=== PATIENT | male | born 1945 | race Caucasian/White ===

== ENCOUNTER 2017-11-07 14:26 | Inpatient (IN) ==
[2017-11-07] MEDS ORDERED: ACETAMINOPHEN 325 MG TABLET PO PRN (16:21)
[2017-11-07] MEDS ORDERED: GLUCAGON 1 MG VIAL IM PRN (16:37)
[2017-11-07] MEDS ORDERED: DEXTROSE 50% 25 GM/50 ML VIAL IV PRN (16:37)
[2017-11-07] MEDS ORDERED: MORPHINE 2 MG/1 ML SYRINGE IV PRN (16:52)
[2017-11-07] MEDS: CLINDAMYCIN INJ 600 MG in PREMIX 1 EACH IV SCH (17:00)
[2017-11-07] MEDS: SODIUM CHLORIDE 0.9% 1,000 ML IV SCH (17:00)
[2017-11-07 17:28] LABS: Basophils # 0.1 10*3/uL (0.0-0.2); Basophils % 0.5 % (0.0-0.8); Eosinophils # 0.2 10*3/uL (0.0-0.87); Eosinophils % 1.7 % (0.00-10.9); Hematocrit 38.8 VOL% (42.0-52.0); Hemoglobin 13.8 GM/DL (14.0-18.0); Immature Granulocytes % 0.4 %; Immature Granulocytes Absolute 0.04 #; Lymphocytes # 1.8 10*3/uL (1.4-4.0); Lymphocytes % 17.5 % (21.2-54.2); Mean Corpuscular HGB Conc 35.6 GM/DL (32-36); Mean Corpuscular Hemoglobin 33 PG (27-34); Mean Corpuscular Volume 91.5 FL (87-102); Mean Platelet Volume 12.2 FL (9.6-12.0); Monocytes # 0.7 10*3/uL (0.11-0.8); Monocytes % 6.6 % (1.7-12.7); Neutrophils # 7.7 10*3/uL (1.4-7.4); Neutrophils % 73.3 % (38.7-73.9); Platelet Count 150 T/CUMM (130-400); Red Blood Count 4.24 MC/CUMM (3.8-5.5); Red Cell Distribution Width 15.3 % (9.3-17.3); White Blood Count 10.5 T/CUMM (4-12)
[2017-11-07] MEDS ORDERED: TAMSULOSIN 0.4 MG CAPSULE PO SCH ×2 (19:00→21:00)
[2017-11-07] MEDS ORDERED: ASPIRIN EC 81 MG TABLET PO SCH (19:00)
[2017-11-07] MEDS ORDERED: MULTIVITAMIN (CENTRUM) TABLET PO SCH (19:00)
[2017-11-07] MEDS ORDERED: SERTRALINE 100 MG TABLET PO SCH (19:00)
[2017-11-07] MEDS: METOPROLOL SUCCINATE XL 100 MG TABLET PO SCH (20:56)
[2017-11-07] MEDS: SERTRALINE 100 MG TABLET PO SCH (20:56)
[2017-11-07] MEDS: MULTIVITAMIN (CENTRUM) TABLET PO SCH (20:56)
[2017-11-07] MEDS: ASPIRIN EC 81 MG TABLET PO SCH (20:57)
[2017-11-07] MEDS: ATORVASTATIN 80 MG TABLET PO SCH (20:57)
[2017-11-07] MEDS: INSULIN LISPRO 100 UNIT/ML SUBCUT SCH (21:00)
[2017-11-08] MEDS: CLINDAMYCIN INJ 600 MG in PREMIX 1 EACH IV SCH ×3 (00:29→17:01)
[2017-11-08 05:44] LABS: Basophils % 0.5 % (0.0-0.8); Eosinophils # 0.3 10*3/uL (0.0-0.87); Eosinophils % 3.8 % (0.00-10.9); Hematocrit 38.5 VOL% (42.0-52.0); Hemoglobin 12.8 GM/DL (14.0-18.0); Immature Granulocytes % 0.3 %; Immature Granulocytes Absolute 0.02 #; Lymphocytes # 2.2 10*3/uL (1.4-4.0); Lymphocytes % 26.9 % (21.2-54.2); Mean Corpuscular HGB Conc 33.2 GM/DL (32-36); Mean Corpuscular Hemoglobin 32 PG (27-34); Mean Corpuscular Volume 95.8 FL (87-102); Mean Platelet Volume 12.1 FL (9.6-12.0); Monocytes # 0.6 10*3/uL (0.11-0.8); Monocytes % 7.9 % (1.7-12.7); Neutrophils # 4.8 10*3/uL (1.4-7.4); Neutrophils % 60.6 % (38.7-73.9); Platelet Count 143 T/CUMM (130-400); Red Blood Count 4.02 MC/CUMM (3.8-5.5); Red Cell Distribution Width 15.4 % (9.3-17.3)
[2017-11-08 06:16] LABS: Calcium 8.8 MG/DL (8.5-10.1); Osmolality,Calculated 278.7 MOS/KG (273-304); Potassium 4.9 MMOL/L (3.5-5.1)
[2017-11-08] MEDS ORDERED: CLINDAMYCIN INJ 50 ML IV ONE (08:55)
[2017-11-08] MEDS ORDERED: SEVOFLURANE 1 UNIT/15 MINUTE INH ONE (10:01)
[2017-11-08] MEDS ORDERED: MIDAZOLAM 2 MG/2 ML VIAL ONE (10:01)
[2017-11-08] MEDS ORDERED: DEXAMETHASONE 10 MG/1 ML VIAL ONE (10:02)
[2017-11-08] MEDS ORDERED: ONDANSETRON 4 MG/2 ML VIAL ONE (10:02)
[2017-11-08] MEDS ORDERED: ETOMIDATE 40 MG/20 ML VIAL IV ONE (10:02)
[2017-11-08] MEDS ORDERED: fentaNYL 100 MCG/2 ML VIAL ONE (10:02)
[2017-11-08] MEDS ORDERED: ROCURONIUM 100 MG/10 ML VIAL IV ONE (10:02)
[2017-11-08] MEDS ORDERED: NEOSTIGMINE 10 MG/10 ML VIAL ONE (10:03)
[2017-11-08] MEDS ORDERED: GLYCOPYRROLATE 0.4 MG/2 ML VIAL ONE (10:05)
[2017-11-08] MEDS: CLOPIDOGREL 75 MG TABLET PO SCH (12:47)
[2017-11-08] MEDS: INSULIN LISPRO 100 UNIT/ML SUBCUT SCH ×4 (12:47→20:49)
[2017-11-08] MEDS: LISINOPRIL 2.5 MG TABLET PO SCH (12:47)
[2017-11-08] MEDS: PANTOPRAZOLE 40 MG TABLET PO SCH (12:48)
[2017-11-08] MEDS: SODIUM CHLORIDE 0.9% 1,000 ML IV SCH (17:01)
[2017-11-08] MEDS ORDERED: TAMSULOSIN 0.4 MG CAPSULE PO SCH (18:00)
[2017-11-08] MEDS: MULTIVITAMIN (CENTRUM) TABLET PO SCH (20:39)
[2017-11-08] MEDS: SERTRALINE 100 MG TABLET PO SCH (20:39)
[2017-11-08] MEDS: ATORVASTATIN 80 MG TABLET PO SCH (20:39)
[2017-11-08] MEDS: METOPROLOL SUCCINATE XL 100 MG TABLET PO SCH (20:39)
[2017-11-08] MEDS: ASPIRIN EC 81 MG TABLET PO SCH (20:39)
[2017-11-09] MEDS: CLINDAMYCIN INJ 600 MG in PREMIX 1 EACH IV SCH ×2 (01:05→09:13)
[2017-11-09 07:34] LABS: Basophils % 0.1 % (0.0-0.8); Hematocrit 34.9 VOL% (42.0-52.0); Immature Granulocytes % 0.5 %; Immature Granulocytes Absolute 0.05 #; Lymphocytes # 1.3 10*3/uL (1.4-4.0); Lymphocytes % 12.3 % (21.2-54.2); Mean Corpuscular HGB Conc 34.4 GM/DL (32-36); Mean Corpuscular Hemoglobin 32 PG (27-34); Mean Corpuscular Volume 94.1 FL (87-102); Mean Platelet Volume 12.1 FL (9.6-12.0); Monocytes # 0.5 10*3/uL (0.11-0.8); Monocytes % 4.2 % (1.7-12.7); Neutrophils # 8.9 10*3/uL (1.4-7.4); Neutrophils % 82.9 % (38.7-73.9); Platelet Count 149 T/CUMM (130-400); Red Blood Count 3.71 MC/CUMM (3.8-5.5); Red Cell Distribution Width 14.7 % (9.3-17.3); White Blood Count 10.7 T/CUMM (4-12)
[2017-11-09 08:03] LABS: Calcium 8.7 MG/DL (8.5-10.1); Osmolality,Calculated 281.7 MOS/KG (273-304); Potassium 4.7 MMOL/L (3.5-5.1)
[2017-11-09 08:16] VITALS: BP 86/47
[2017-11-09] MEDS: CLOPIDOGREL 75 MG TABLET PO SCH (09:13)
[2017-11-09] MEDS: LISINOPRIL 2.5 MG TABLET PO SCH (09:13)
[2017-11-09] MEDS: PANTOPRAZOLE 40 MG TABLET PO SCH (09:13)
[2017-11-09] MEDS: INSULIN LISPRO 100 UNIT/ML SUBCUT SCH ×2 (10:42→12:10)
== END 2017-11-09 12:27 | disposition home or self-care (01) | DRG 580 ==
LOC: N.2E 14:56 → SUATTDRO 14:56
PROVIDERS: ADMIT Internal Medicine; ATTEND Hospitalist

== ENCOUNTER 2018-01-23 16:40 | Inpatient (IN) ==
[2018-01-23] MEDS ORDERED: ONDANSETRON 4 MG/2 ML VIAL IV STA (18:38)
[2018-01-23] MEDS ORDERED: PANTOPRAZOLE 40 MG VIAL IV STA (18:38)
[2018-01-23 19:18] LABS: Basophils % 0.4 % (0.0-0.8); Eosinophils # 0.1 10*3/uL (0.0-0.87); Eosinophils % 1.2 % (0.00-10.9); Hematocrit 25.8 VOL% (42.0-52.0); Hemoglobin 8.1 GM/DL (14.0-18.0); Immature Granulocytes % 0.4 %; Immature Granulocytes Absolute 0.03 #; Lymphocytes # 2.1 10*3/uL (1.4-4.0); Lymphocytes % 24.6 % (21.2-54.2); Mean Corpuscular HGB Conc 31.4 GM/DL (32-36); Mean Corpuscular Hemoglobin 27 PG (27-34); Mean Corpuscular Volume 85.4 FL (87-102); Mean Platelet Volume 12.2 FL (9.6-12.0); Monocytes # 0.9 10*3/uL (0.11-0.8); Monocytes % 10.9 % (1.7-12.7); Neutrophils # 5.3 10*3/uL (1.4-7.4); Neutrophils % 62.5 % (38.7-73.9); Platelet Count 183 T/CUMM (130-400); Red Blood Count 3.02 MC/CUMM (3.8-5.5); White Blood Count 8.5 T/CUMM (4-12)
[2018-01-23 19:39] LABS: Alanine Aminotransferase 19 U/L (16-61); Albumin 3.7 G/DL (3.4-5.0); Alkaline Phosphatase 82 U/L (45-117); Aspartate Amino Transferase 12 U/L (0-37); Blood Urea Nitrogen 22 MG/DL (7-18); Glucose 79 MG/DL (74-106); Osmolality,Calculated 274.8 MOS/KG (273-304); Potassium 3.9 MMOL/L (3.5-5.1); Sodium 137 MMOL/L (136-145); Troponin I Only < 0.015 NG/ML (0.00-0.045)
[2018-01-23 19:41] LABS: PT Patient Result 10.7 SECS
[2018-01-23] MEDS ORDERED: DEXTROSE 50% 25 GM/50 ML VIAL IV PRN (20:12)
[2018-01-23] MEDS ORDERED: GLUCAGON 1 MG VIAL IM PRN (20:12)
[2018-01-23] MEDS ORDERED: SODIUM CHLORIDE 0.9% 1,000 ML IV SCH (20:58)
[2018-01-23] MEDS ORDERED: ONDANSETRON 4 MG/2 ML VIAL IV PRN (20:58)
[2018-01-23] MEDS ORDERED: ACETAMINOPHEN 325 MG TABLET PO PRN (20:58)
[2018-01-23] MEDS ORDERED: CALCIUM GLUCONATE 2,000 MG in SODIUM CHLORIDE 0.9% 100 ML IV ONE (20:58)
[2018-01-23] MEDS ORDERED: NICOTINE 21 MG/24 HR PATCH TRANSDERM PRN (20:58)
[2018-01-23] MEDS: ATORVASTATIN 80 MG TABLET PO SCH (22:02)
[2018-01-23] MEDS: SERTRALINE 50 MG TABLET PO SCH (22:02)
[2018-01-23] MEDS: INSULIN REGULAR 100 UNIT/ML SUBCUT SCH (22:42)
[2018-01-23] MEDS: PANTOPRAZOLE 40 MG VIAL IV SCH (22:43)
[2018-01-23] MEDS ORDERED: FUROSEMIDE 20 MG/2 ML VIAL IV PRN (22:54)
[2018-01-23] MEDS ORDERED: SODIUM CHLORIDE 0.9% 1,000 ML IV PRN (22:54)
[2018-01-24 05:39] LABS: Basophils % 0.6 % (0.0-0.8); Eosinophils # 0.1 10*3/uL (0.0-0.87); Eosinophils % 1.7 % (0.00-10.9); Hematocrit 27.8 VOL% (42.0-52.0); Hemoglobin 9.1 GM/DL (14.0-18.0); Immature Granulocytes % 0.4 %; Immature Granulocytes Absolute 0.03 #; Lymphocytes # 2.1 10*3/uL (1.4-4.0); Lymphocytes % 28.8 % (21.2-54.2); Mean Corpuscular HGB Conc 32.7 GM/DL (32-36); Mean Corpuscular Hemoglobin 27 PG (27-34); Mean Corpuscular Volume 82.5 FL (87-102); Mean Platelet Volume 12.1 FL (9.6-12.0); Monocytes # 0.9 10*3/uL (0.11-0.8); Monocytes % 12.6 % (1.7-12.7); Neutrophils # 4.1 10*3/uL (1.4-7.4); Neutrophils % 55.9 % (38.7-73.9); Platelet Count 170 T/CUMM (130-400); Red Blood Count 3.37 MC/CUMM (3.8-5.5); Red Cell Distribution Width 16.4 % (9.3-17.3); White Blood Count 7.3 T/CUMM (4-12)
[2018-01-24 06:05] LABS: Eosinophils 5 % (0-10); Hypochromasia 1+; Lymphocytes 29 % (20-55); Platelet Estimate Normal; Segmented Neutrophils 56 % (50-85); Total Cells Counted 100
[2018-01-24 06:06] LABS: Giant Platelets Few; Ovalocytes Slight
[2018-01-24 06:10] LABS: Albumin 3.5 G/DL (3.4-5.0); Bilirubin,Total 0.6 MG/DL (0.2-1.0); Calcium 8.9 MG/DL (8.5-10.1); Osmolality,Calculated 275.8 MOS/KG (273-304); Potassium 4.3 MMOL/L (3.5-5.1); Total Protein 6.8 G/DL (6.4-8.3)
[2018-01-24 06:11] LABS: Risk Ratio 2.19; VLDL CHOLESTEROL 16.6 MG/DL
[2018-01-24] MEDS: PANTOPRAZOLE 40 MG VIAL IV SCH ×2 (08:32→21:08)
[2018-01-24] MEDS: DILTIAZEM CD 120 MG CAPSULE PO SCH (08:32)
[2018-01-24] MEDS: INSULIN REGULAR 100 UNIT/ML SUBCUT SCH ×4 (08:33→21:14)
[2018-01-24 10:45] LABS: Hematocrit 29.5 VOL% (42.0-52.0); Hemoglobin 9.8 GM/DL (14.0-18.0)
[2018-01-24 10:50] LABS: Ferritin 16.6 ng/ml (26-388)
[2018-01-24] MEDS: SERTRALINE 50 MG TABLET PO SCH (21:09)
[2018-01-24] MEDS: ATORVASTATIN 80 MG TABLET PO SCH (21:09)
[2018-01-25 04:40] LABS: Basophils % 0.5 % (0.0-0.8); Eosinophils # 0.2 10*3/uL (0.0-0.87); Eosinophils % 3.4 % (0.00-10.9); Hemoglobin 10.6 GM/DL (14.0-18.0); Immature Granulocytes % 0.2 %; Immature Granulocytes Absolute 0.01 #; Lymphocytes % 33.4 % (21.2-54.2); Mean Corpuscular HGB Conc 34.2 GM/DL (32-36); Mean Corpuscular Hemoglobin 28 PG (27-34); Mean Corpuscular Volume 82.2 FL (87-102); Mean Platelet Volume 12.9 FL (9.6-12.0); Monocytes # 0.6 10*3/uL (0.11-0.8); Monocytes % 10.5 % (1.7-12.7); Neutrophils # 3.1 10*3/uL (1.4-7.4); Platelet Count 176 T/CUMM (130-400); Red Blood Count 3.77 MC/CUMM (3.8-5.5); Red Cell Distribution Width 16.3 % (9.3-17.3); White Blood Count 5.9 T/CUMM (4-12)
[2018-01-25 05:03] LABS: Calcium 8.4 MG/DL (8.5-10.1); Osmolality,Calculated 276.7 MOS/KG (273-304); Potassium 4.1 MMOL/L (3.5-5.1)
[2018-01-25] MEDS: INSULIN REGULAR 100 UNIT/ML SUBCUT SCH ×4 (09:53→20:48)
[2018-01-25] MEDS ORDERED: LIDOCAINE 1% 5 ML VIAL ONE (11:20)
[2018-01-25] MEDS ORDERED: ETOMIDATE 20 MG/10 ML VIAL IV ONE (11:20)
[2018-01-25] MEDS ORDERED: PROPOFOL 200 MG/20 ML VIAL IV ONE (11:20)
[2018-01-25] MEDS ORDERED: BISACODYL 5 MG TABLET PO ONE (12:00)
[2018-01-25] MEDS: DILTIAZEM CD 120 MG CAPSULE PO SCH (13:28)
[2018-01-25] MEDS: PANTOPRAZOLE 40 MG VIAL IV SCH ×2 (13:28→20:32)
[2018-01-25] MEDS ORDERED: POLYETHYLENE GLYCOL POWDER 255 GM BOTTLE PO ONE (18:00)
[2018-01-25] MEDS: SERTRALINE 50 MG TABLET PO SCH (20:32)
[2018-01-25] MEDS: ATORVASTATIN 80 MG TABLET PO SCH (20:32)
[2018-01-26 07:45] VITALS: BP 119/59
[2018-01-26] MEDS: INSULIN REGULAR 100 UNIT/ML SUBCUT SCH (08:48)
[2018-01-26] MEDS: PANTOPRAZOLE 40 MG VIAL IV SCH (08:57)
[2018-01-26] MEDS: DILTIAZEM CD 120 MG CAPSULE PO SCH (08:57)
[2018-01-26] MEDS ORDERED: LISINOPRIL 2.5 MG TABLET PO SCH (09:00)
[2018-01-26] MEDS ORDERED: SPIRONOLACTONE 25 MG TABLET PO SCH (09:00)
[2018-01-26] MEDS ORDERED: ISOSORBIDE MONONITRATE 30 MG TABLET PO SCH (09:00)
[2018-01-26 13:40] LABS: PTH-Related Peptide 0.7 pmol/L (<2.0)
[2018-01-26] MEDS ORDERED: METOPROLOL SUCCINATE XL 50 MG TABLET PO SCH (21:00)
[2018-01-27] MEDS ORDERED: GLIMEPIRIDE 2 MG TABLET PO SCH (08:00)
== END 2018-01-26 11:17 | disposition home or self-care (01) | DRG 378 ==
LOC: N.ED 16:40 → SUATTDRO 20:02 → N.EDINP 20:02 → N.TELEN 20:29
PROVIDERS: ADMIT Internal Medicine; ATTEND Internal Medicine Cardiovascular Disease

== ENCOUNTER 2018-12-24 01:33 | Inpatient (IN) ==
[2018-12-24 02:35] LABS: Basophils % 0.4 % (0.0-0.8); Eosinophils # 0.1 10*3/uL (0.0-0.87); Eosinophils % 0.8 % (0.00-10.9); Hematocrit 44.8 VOL% (42.0-52.0); Hemoglobin 14.6 GM/DL (14.0-18.0); Immature Granulocytes % 0.5 %; Immature Granulocytes Absolute 0.05 #; Lymphocytes # 1.9 10*3/uL (1.4-4.0); Lymphocytes % 17.8 % (21.2-54.2); Mean Corpuscular HGB Conc 32.6 GM/DL (32-36); Mean Corpuscular Hemoglobin 34 PG (27-34); Mean Corpuscular Volume 102.8 FL (87-102); Mean Platelet Volume 12.6 FL (9.6-12.0); Monocytes # 0.7 10*3/uL (0.11-0.8); Monocytes % 6.7 % (1.7-12.7); Neutrophils % 73.8 % (38.7-73.9); Platelet Count 135 T/CUMM (130-400); Red Blood Count 4.36 MC/CUMM (3.8-5.5); Red Cell Distribution Width 14.2 % (9.3-17.3); White Blood Count 10.9 T/CUMM (4-12)
[2018-12-24 02:50] LABS: Albumin 3.7 G/DL (3.4-5.0); Bilirubin,Total 1.1 MG/DL (0.2-1.0); Calcium 8.3 MG/DL (8.5-10.1); Osmolality,Calculated 284.4 MOS/KG (273-304); Potassium 4.7 MMOL/L (3.5-5.1); Total Protein 6.7 G/DL (6.4-8.3)
[2018-12-24] MEDS ORDERED: ONDANSETRON 4 MG/2 ML VIAL IV STA (02:58)
[2018-12-24] MEDS ORDERED: PANTOPRAZOLE 40 MG VIAL IV STA (02:59)
[2018-12-24] MEDS ORDERED: ONDANSETRON 4 MG/2 ML VIAL IV PRN (04:24)
[2018-12-24] MEDS ORDERED: FUROSEMIDE 40 MG/4 ML VIAL IV ONE (04:31)
[2018-12-24] MEDS ORDERED: DEXTROSE 50% 25 GM/50 ML SYRINGE IV PRN (04:41)
[2018-12-24] MEDS ORDERED: GLUCAGON 1 MG VIAL IM PRN (04:41)
[2018-12-24] MEDS ORDERED: ALBUTEROL/IPRATROPIUM 3 ML NEB RESP TX PRN (04:44)
[2018-12-24] MEDS: INSULIN REGULAR 100 UNIT/ML SUBCUT SCH ×4 (08:12→21:23)
[2018-12-24] MEDS: PANTOPRAZOLE 40 MG TABLET PO SCH (08:48)
[2018-12-24] MEDS: ENOXAPARIN 40 MG/0.4 ML SYRINGE SUBCUT SCH (08:48)
[2018-12-24] MEDS: FERROUS SULFATE 325 MG TABLET PO SCH (08:48)
[2018-12-24] MEDS: MULTIVITAMIN (CENTRUM) TABLET PO SCH (08:48)
[2018-12-24] MEDS: NICOTINE 21 MG/24 HR PATCH TRANSDERM SCH (08:48)
[2018-12-24] MEDS: CLOPIDOGREL 75 MG TABLET PO SCH (08:48)
[2018-12-24] MEDS: SERTRALINE 50 MG TABLET PO SCH ×2 (08:48→21:22)
[2018-12-24] MEDS ORDERED: METOPROLOL TARTRATE 5 MG/5 ML VIAL IV ONE (09:57)
[2018-12-24] MEDS: GLIMEPIRIDE 4 MG TABLET PO SCH (16:40)
[2018-12-24] MEDS: FUROSEMIDE 40 MG/4 ML VIAL IV SCH (16:40)
[2018-12-24] MEDS: CARVEDILOL 3.125 MG TABLET PO SCH (16:40)
[2018-12-24] MEDS ORDERED: DILTIAZEM CD 120 MG CAPSULE PO SCH (18:52)
[2018-12-24] MEDS ORDERED: METOPROLOL SUCCINATE XL 100 MG TABLET PO SCH (18:53)
[2018-12-24] MEDS ORDERED: CHOLECALCIFEROL 1,000 UNIT TABLET PO SCH (21:00)
[2018-12-24] MEDS ORDERED: ASPIRIN EC 81 MG TABLET PO SCH (21:00)
[2018-12-24] MEDS ORDERED: ATORVASTATIN 80 MG TABLET PO SCH (21:00)
[2018-12-24] MEDS ORDERED: ACETAMINOPHEN 500 MG TABLET PO ONE (23:18)
[2018-12-24] MEDS ORDERED: diphenhydrAMINE CAP 25 MG CAPSULE PO ONE (23:18)
[2018-12-25 05:03] LABS: Basophils # 0.1 10*3/uL (0.0-0.2); Basophils % 0.9 % (0.0-0.8); Eosinophils # 0.2 10*3/uL (0.0-0.87); Hematocrit 42.4 VOL% (42.0-52.0); Hemoglobin 14.1 GM/DL (14.0-18.0); Immature Granulocytes % 0.3 %; Immature Granulocytes Absolute 0.02 #; Lymphocytes # 2.3 10*3/uL (1.4-4.0); Lymphocytes % 32.9 % (21.2-54.2); Mean Corpuscular HGB Conc 33.3 GM/DL (32-36); Mean Corpuscular Hemoglobin 33 PG (27-34); Mean Corpuscular Volume 99.8 FL (87-102); Mean Platelet Volume 12.2 FL (9.6-12.0); Monocytes # 0.5 10*3/uL (0.11-0.8); Monocytes % 6.7 % (1.7-12.7); Neutrophils # 3.9 10*3/uL (1.4-7.4); Neutrophils % 56.2 % (38.7-73.9); Platelet Count 133 T/CUMM (130-400); Red Blood Count 4.25 MC/CUMM (3.8-5.5); White Blood Count 6.9 T/CUMM (4-12)
[2018-12-25 05:32] LABS: Calcium 8.2 MG/DL (8.5-10.1); Osmolality,Calculated 281.4 MOS/KG (273-304); Potassium 3.5 MMOL/L (3.5-5.1); Risk Ratio 3.43; VLDL CHOLESTEROL 20.2 MG/DL
[2018-12-25] MEDS: GLIMEPIRIDE 4 MG TABLET PO SCH (09:17)
[2018-12-25] MEDS: CARVEDILOL 3.125 MG TABLET PO SCH (09:17)
[2018-12-25] MEDS: INSULIN REGULAR 100 UNIT/ML SUBCUT SCH ×2 (09:17→13:37)
[2018-12-25] MEDS: MULTIVITAMIN (CENTRUM) TABLET PO SCH (09:18)
[2018-12-25] MEDS: ENOXAPARIN 40 MG/0.4 ML SYRINGE SUBCUT SCH (09:18)
[2018-12-25] MEDS: NICOTINE 21 MG/24 HR PATCH TRANSDERM SCH (09:18)
[2018-12-25] MEDS: FERROUS SULFATE 325 MG TABLET PO SCH (09:18)
[2018-12-25] MEDS: PANTOPRAZOLE 40 MG TABLET PO SCH (09:19)
[2018-12-25] MEDS: SERTRALINE 50 MG TABLET PO SCH (09:19)
[2018-12-25] MEDS: CLOPIDOGREL 75 MG TABLET PO SCH (09:19)
[2018-12-25] MEDS: FUROSEMIDE 40 MG/4 ML VIAL IV SCH (09:24)
[2018-12-25] MEDS ORDERED: APIXABAN 5 MG TABLET PO SCH (11:00)
[2018-12-25] MEDS ORDERED: AMIODARONE 200 MG TABLET PO SCH (11:30)
[2018-12-25 12:19] VITALS: BP 109/65
[2018-12-25] MEDS ORDERED: METOPROLOL SUCCINATE XL 100 MG TABLET PO SCH (18:41)
[2018-12-25] MEDS ORDERED: DILTIAZEM CD 120 MG CAPSULE PO SCH (18:41)
[2018-12-26] MEDS ORDERED: ENOXAPARIN 40 MG/0.4 ML SYRINGE SUBCUT SCH (09:00)
== END 2018-12-25 13:55 | disposition home or self-care (01) | DRG 308 ==
LOC: N.ED 01:33 → N.EDINP 04:24 → N.TELEN 05:27
PROVIDERS: ADMIT Internal Medicine; ATTEND Internal Medicine

== ENCOUNTER 2019-01-08 21:35 | Inpatient (IN) ==
[2019-01-08] MEDS ORDERED: methylPREDNISolone SOD SUC 125 MG/2 ML VIAL IV STA (22:51)
[2019-01-08] MEDS ORDERED: FUROSEMIDE 100 MG/10 ML VIAL IV STA (22:51)
[2019-01-08] MEDS ORDERED: ALBUTEROL/IPRATROPIUM 3 ML NEB RESP TX STA (22:51)
[2019-01-08 22:59] LABS: Basophils % 0.4 % (0.0-0.8); Eosinophils # 0.1 10*3/uL (0.0-0.87); Eosinophils % 0.9 % (0.00-10.9); Hematocrit 43.3 VOL% (42.0-52.0); Hemoglobin 13.9 GM/DL (14.0-18.0); Immature Granulocytes % 0.4 %; Immature Granulocytes Absolute 0.04 #; Lymphocytes # 1.6 10*3/uL (1.4-4.0); Mean Corpuscular HGB Conc 32.1 GM/DL (32-36); Mean Corpuscular Volume 102.4 FL (87-102); Mean Platelet Volume 12.5 FL (9.6-12.0); Monocytes % 5.9 % (1.7-12.7); Neutrophils % 75.4 % (38.7-73.9); Platelet Count 155 T/CUMM (130-400); Red Blood Count 4.23 MC/CUMM (3.8-5.5); Red Cell Distribution Width 14.9 % (9.3-17.3); White Blood Count 9.6 T/CUMM (4-12)
[2019-01-08 23:02] LABS: INR 1.1; PT Patient Result 11.5 SECS
[2019-01-08 23:11] LABS: Albumin 3.6 G/DL (3.4-5.0); Bilirubin,Total 0.9 MG/DL (0.2-1.0); Calcium 8.7 MG/DL (8.5-10.1); Osmolality,Calculated 281.5 MOS/KG (273-304); Total Protein 6.5 G/DL (6.4-8.3)
[2019-01-08 23:38] LABS: Apearance,Urine CLEAR (Clear); Bacteria,Urine Occasional /HPF (Few); Bilirubin,Urine Negative (Negative); Blood, Urine Negative (Negative); Glucose,Urine (UA) Negative (Negative); Ketones,Urine 20 mg/dL (Negative); Mucus,Urine Occasional /LPF (Occasional); Nitrite,Urine Negative (Negative); Protein,Urine Negative; RBC,Urine 1 /HPF (0-4); Squamous Epithelial Cell,Urine Occasional /HPF (0-10); Urine Color Amber (Yellow); Urine Specific Gravity 1.026 (1.001-1.035); WBC,Urine 8 /HPF (0-6)
[2019-01-09] MEDS ORDERED: ONDANSETRON 4 MG/2 ML VIAL IV PRN (01:30)
[2019-01-09] MEDS ORDERED: DEXTROSE 50% 25 GM/50 ML SYRINGE IV PRN (01:30)
[2019-01-09] MEDS ORDERED: GLUCAGON 1 MG VIAL IM PRN ×2 (01:30→11:00)
[2019-01-09 02:06] LABS: Risk Ratio 2.86; Thyroid Stimulating Hormone 4.94 uIU/ml (0.358-3.74); VLDL CHOLESTEROL 20.2 MG/DL
[2019-01-09] MEDS: DILTIAZEM CD 120 MG CAPSULE PO SCH ×2 (04:00→09:08)
[2019-01-09 04:28] LABS: Troponin I 0.027 NG/ML (0.00-0.045)
[2019-01-09] MEDS: METOPROLOL SUCCINATE XL 100 MG TABLET PO SCH ×2 (05:15→09:09)
[2019-01-09 05:22] LABS: Basophils % 0.3 % (0.0-0.8); Hematocrit 39.2 VOL% (42.0-52.0); Immature Granulocytes % 0.4 %; Immature Granulocytes Absolute 0.03 #; Lymphocytes # 0.4 10*3/uL (1.4-4.0); Lymphocytes % 5.5 % (21.2-54.2); Mean Corpuscular HGB Conc 33.2 GM/DL (32-36); Mean Platelet Volume 12.7 FL (9.6-12.0); Neutrophils % 92.8 % (38.7-73.9); Platelet Count 138 T/CUMM (130-400); Red Blood Count 3.88 MC/CUMM (3.8-5.5); Red Cell Distribution Width 14.8 % (9.3-17.3)
[2019-01-09 05:44] LABS: Calcium 8.4 MG/DL (8.5-10.1); Osmolality,Calculated 284.5 MOS/KG (273-304)
[2019-01-09 06:33] LABS: Anisocytosis Slight; Lymphocytes 5 % (20-55); Segmented Neutrophils 95 % (50-85); Total Cells Counted 100
[2019-01-09 06:34] LABS: Microcytosis Slight
[2019-01-09 06:35] LABS: Platelet Estimate Normal; Spherocytes Few
[2019-01-09] MEDS: INSULIN LISPRO 100 UNIT/ML SUBCUT SCH ×3 (07:07→17:33)
[2019-01-09 07:09] LABS: Troponin I 0.025 NG/ML (0.00-0.045)
[2019-01-09] MEDS: ALBUTEROL/IPRATROPIUM 3 ML NEB RESP TX SCH ×5 (07:20→23:42)
[2019-01-09] MEDS: CLOPIDOGREL 75 MG TABLET PO SCH (09:08)
[2019-01-09] MEDS: ISOSORBIDE MONONITRATE 30 MG TABLET PO SCH ×2 (09:08→09:11)
[2019-01-09] MEDS: AMIODARONE 200 MG TABLET PO SCH (09:08)
[2019-01-09] MEDS: PANTOPRAZOLE 40 MG TABLET PO SCH (09:09)
[2019-01-09] MEDS: ENOXAPARIN 40 MG/0.4 ML SYRINGE SUBCUT SCH (09:09)
[2019-01-09 09:50] LABS: Troponin I 0.026 NG/ML (0.00-0.045)
[2019-01-09] MEDS ORDERED: DEXTROSE 50% 25 GM/50 ML VIAL IV PRN (11:00)
[2019-01-09] MEDS ORDERED: metOLazone 5 MG TABLET PO SCH (15:00)
[2019-01-09] MEDS: FUROSEMIDE 40 MG/4 ML VIAL IV SCH (15:57)
[2019-01-09 16:19] LABS: Troponin I 0.017 NG/ML (0.00-0.045)
[2019-01-09] MEDS: GLIMEPIRIDE 4 MG TABLET PO SCH (17:32)
[2019-01-09] MEDS: DULoxetine 30 MG CAPSULE PO SCH (21:16)
[2019-01-09] MEDS: ATORVASTATIN 80 MG TABLET PO SCH (21:16)
[2019-01-09] MEDS: ASPIRIN EC 81 MG TABLET PO SCH (21:16)
[2019-01-10] MEDS: ALBUTEROL/IPRATROPIUM 3 ML NEB RESP TX SCH ×7 (02:37→23:39)
[2019-01-10 05:35] LABS: Basophils % 0.1 % (0.0-0.8); Hematocrit 37.8 VOL% (42.0-52.0); Hemoglobin 12.2 GM/DL (14.0-18.0); Immature Granulocytes % 0.4 %; Immature Granulocytes Absolute 0.04 #; Lymphocytes # 0.8 10*3/uL (1.4-4.0); Lymphocytes % 8.5 % (21.2-54.2); Mean Corpuscular HGB Conc 32.3 GM/DL (32-36); Mean Corpuscular Volume 101.9 FL (87-102); Monocytes % 6.2 % (1.7-12.7); Neutrophils % 84.8 % (38.7-73.9); Platelet Count 134 T/CUMM (130-400); Red Blood Count 3.71 MC/CUMM (3.8-5.5); Red Cell Distribution Width 14.8 % (9.3-17.3); White Blood Count 9.2 T/CUMM (4-12)
[2019-01-10] MEDS: INSULIN LISPRO 100 UNIT/ML SUBCUT SCH ×4 (06:01→18:26)
[2019-01-10 06:32] LABS: Calcium 8.3 MG/DL (8.5-10.1); Osmolality,Calculated 289.5 MOS/KG (273-304)
[2019-01-10] MEDS: GLIMEPIRIDE 4 MG TABLET PO SCH ×2 (09:02→16:20)
[2019-01-10] MEDS: METOPROLOL SUCCINATE XL 100 MG TABLET PO SCH (09:02)
[2019-01-10] MEDS: DILTIAZEM CD 120 MG CAPSULE PO SCH (09:03)
[2019-01-10] MEDS: PANTOPRAZOLE 40 MG TABLET PO SCH (09:03)
[2019-01-10] MEDS: ENOXAPARIN 40 MG/0.4 ML SYRINGE SUBCUT SCH (09:04)
[2019-01-10] MEDS: ISOSORBIDE MONONITRATE 30 MG TABLET PO SCH (09:04)
[2019-01-10] MEDS: CLOPIDOGREL 75 MG TABLET PO SCH (09:04)
[2019-01-10] MEDS: AMIODARONE 200 MG TABLET PO SCH (09:05)
[2019-01-10] MEDS: FUROSEMIDE 40 MG/4 ML VIAL IV SCH (10:18)
[2019-01-10] MEDS: SODIUM CHLORIDE 0.9% 1,000 ML IV SCH (12:23)
[2019-01-10] MEDS: ATORVASTATIN 80 MG TABLET PO SCH ×2 (19:38→20:01)
[2019-01-10] MEDS: DULoxetine 30 MG CAPSULE PO SCH ×2 (19:38→20:00)
[2019-01-10] MEDS: ASPIRIN EC 81 MG TABLET PO SCH ×2 (19:38→20:00)
[2019-01-11] MEDS: INSULIN LISPRO 100 UNIT/ML SUBCUT SCH ×4 (03:45→18:37)
[2019-01-11] MEDS: SODIUM CHLORIDE 0.9% 1,000 ML IV SCH (03:45)
[2019-01-11] MEDS: ALBUTEROL/IPRATROPIUM 3 ML NEB RESP TX SCH ×6 (04:00→23:25)
[2019-01-11 06:15] LABS: Calcium 8.4 MG/DL (8.5-10.1); Osmolality,Calculated 287.4 MOS/KG (273-304)
[2019-01-11] MEDS ORDERED: DILTIAZEM CD 240 MG CAPSULE PO SCH (06:23)
[2019-01-11] MEDS: PANTOPRAZOLE 40 MG TABLET PO SCH (08:00)
[2019-01-11] MEDS: GLIMEPIRIDE 4 MG TABLET PO SCH (08:00)
[2019-01-11] MEDS: METOPROLOL SUCCINATE XL 100 MG TABLET PO SCH (08:00)
[2019-01-11] MEDS: ISOSORBIDE MONONITRATE 30 MG TABLET PO SCH (08:00)
[2019-01-11] MEDS: AMIODARONE 200 MG TABLET PO SCH (08:00)
[2019-01-11] MEDS: CLOPIDOGREL 75 MG TABLET PO SCH (08:00)
[2019-01-11] MEDS: ENOXAPARIN 40 MG/0.4 ML SYRINGE SUBCUT SCH (08:00)
[2019-01-11 08:09] VITALS: BP 156/93
[2019-01-11] MEDS ORDERED: FUROSEMIDE 40 MG/4 ML VIAL IV ONE (08:12)
[2019-01-11] MEDS ORDERED: LORazepam 2 MG/1 ML VIAL ONE (09:00)
[2019-01-11] MEDS ORDERED: LORazepam 2 MG/1 ML VIAL IV ONE (09:04)
[2019-01-11] MEDS ORDERED: PROPOFOL 1,000 MG/100 ML BOTTLE IV ONE (09:25)
[2019-01-11] MEDS ORDERED: PHENYLEPHRINE DRIP 40 MG/250 ML PREMIX IV ONE (09:39)
[2019-01-11 09:44] LABS: Troponin I 0.078 NG/ML (0.00-0.045)
[2019-01-11 09:57] LABS: Apearance,Urine CLEAR (Clear); Bilirubin,Urine Negative (Negative); Blood, Urine Negative (Negative); Glucose,Urine (UA) Negative (Negative); Ketones,Urine Negative (Negative); Mucus,Urine Occasional /LPF (Occasional); Nitrite,Urine Negative (Negative); Protein,Urine Negative; RBC,Urine <1 /HPF (0-4); Squamous Epithelial Cell,Urine Occasional /HPF (0-10); Urine Color Yellow (Yellow); Urine Specific Gravity 1.016 (1.001-1.035); Urine Urobilinogen < 2.0 EU/DL (0.2-1.0); WBC,Urine 4 /HPF (0-6)
[2019-01-11 10:01] LABS: ABG Base Excess -10.6 MMOL/L (-2.5-2.5); ABG Oxygen Saturation 88.5 % (95-100); ABG PCO2 37.8 MM HG (35-48); ABG PH 7.243 (7.35-7.45); ABG PO2 68.5 MM HG (80-95); ABG TCO2 14.6 MMOL/L (23-27)
[2019-01-11] MEDS ORDERED: HEPARIN/NACL 0.9% 2 UNITS/ML 500 ML IV ONE ×2 (10:02→10:15)
[2019-01-11] MEDS ORDERED: PROPOFOL 200 MG/20 ML VIAL IV ONE (10:07)
[2019-01-11] MEDS ORDERED: PHENYLEPHRINE 1 MG/10 ML SYRINGE IV ONE (10:08)
[2019-01-11] MEDS ORDERED: SUCCINYLCHOLINE 200 MG/10 ML VIAL ONE (10:08)
[2019-01-11] MEDS: PROPOFOL 1,000 MG/100 ML BOTTLE IV SCH ×2 (10:10→18:36)
[2019-01-11] MEDS ORDERED: LIDOCAINE 1% 20 ML VIAL ONE (10:15)
[2019-01-11] MEDS: HEPARIN/NACL 0.9% 2 UNITS/ML 500 ML IV SCH (10:18)
[2019-01-11 13:12] LABS: ABG Base Excess -5.5 MMOL/L (-2.5-2.5); ABG HCO3 19.9 MMOL/L (20-26); ABG Oxygen Saturation 98.9 % (95-100); ABG PCO2 33.5 MM HG (35-48); ABG PH 7.363 (7.35-7.45); ABG TCO2 16.8 MMOL/L (23-27)
[2019-01-11] MEDS: POTASSIUM CHLORIDE RIDER 20 MEQ in PREMIX 1 EACH IV PRN ×2 (13:32→15:45)
[2019-01-11] MEDS: methylPREDNISolone SOD SUC 40 MG/1 ML VIAL IV SCH ×2 (15:08→21:49)
[2019-01-11] MEDS ORDERED: FUROSEMIDE 40 MG/4 ML VIAL IV SCH (16:00)
[2019-01-11] MEDS: DOBUTamine 500 MG/250 ML PREMIX IV PRN ×2 (16:40→16:52)
[2019-01-11] MEDS: POTASSIUM CHLORIDE RIDER 10 MEQ in PREMIX 1 EACH IV PRN (18:30)
[2019-01-11 21:42] LABS: Troponin I 0.129 NG/ML (0.00-0.045)
[2019-01-11] MEDS: ATORVASTATIN 80 MG TABLET PO SCH (21:49)
[2019-01-11] MEDS: DULoxetine 30 MG CAPSULE PO SCH (21:49)
[2019-01-11] MEDS: ASPIRIN EC 81 MG TABLET PO SCH (21:49)
[2019-01-12] MEDS: INSULIN LISPRO 100 UNIT/ML SUBCUT SCH ×5 (01:03→23:36)
[2019-01-12] MEDS: DOBUTamine 500 MG/250 ML PREMIX IV PRN ×6 (01:45→21:44)
[2019-01-12] MEDS: ALBUTEROL/IPRATROPIUM 3 ML NEB RESP TX SCH ×6 (03:13→22:34)
[2019-01-12] MEDS: PROPOFOL 1,000 MG/100 ML BOTTLE IV SCH ×2 (03:38→15:05)
[2019-01-12 04:13] LABS: ABG Base Excess -2.4 MMOL/L (-2.5-2.5); ABG HCO3 22.4 MMOL/L (20-26); ABG Oxygen Saturation 99.6 % (95-100); ABG PCO2 32.8 MM HG (35-48); ABG PH 7.421 (7.35-7.45); ABG TCO2 19.2 MMOL/L (23-27)
[2019-01-12 04:30] LABS: Hematocrit 31.3 VOL% (42.0-52.0); Hemoglobin 10.5 GM/DL (14.0-18.0); Immature Granulocytes % 0.3 %; Immature Granulocytes Absolute 0.03 #; Lymphocytes # 0.5 10*3/uL (1.4-4.0); Lymphocytes % 5.3 % (21.2-54.2); Mean Corpuscular HGB Conc 33.5 GM/DL (32-36); Mean Corpuscular Volume 99.7 FL (87-102); Mean Platelet Volume 13.3 FL (9.6-12.0); Monocytes % 2.7 % (1.7-12.7); Neutrophils % 91.7 % (38.7-73.9); Platelet Count 103 T/CUMM (130-400); Red Blood Count 3.14 MC/CUMM (3.8-5.5); Red Cell Distribution Width 14.8 % (9.3-17.3); White Blood Count 9.3 T/CUMM (4-12)
[2019-01-12 04:54] LABS: Calcium 7.9 MG/DL (8.5-10.1); Osmolality,Calculated 292.8 MOS/KG (273-304)
[2019-01-12 05:23] LABS: Lymphocytes 1 % (20-55); Platelet Estimate Decreased; Polychromasia Slight; Segmented Neutrophils 99 % (50-85); Total Cells Counted 100
[2019-01-12] MEDS: methylPREDNISolone SOD SUC 40 MG/1 ML VIAL IV SCH ×3 (06:40→21:21)
[2019-01-12] MEDS: CLOPIDOGREL 75 MG TABLET PO SCH (09:21)
[2019-01-12] MEDS: AMIODARONE 200 MG TABLET PO SCH (09:21)
[2019-01-12] MEDS: ENOXAPARIN 40 MG/0.4 ML SYRINGE SUBCUT SCH (09:21)
[2019-01-12] MEDS: PANTOPRAZOLE 40 MG TABLET PO SCH (09:30)
[2019-01-12] MEDS: LANSOPRAZOLE ODT 30 MG TABLET PER TUBE SCH (09:47)
[2019-01-12] MEDS: POTASSIUM CHLORIDE RIDER 20 MEQ in PREMIX 1 EACH IV PRN (11:15)
[2019-01-12] MEDS: POTASSIUM CHLORIDE RIDER 10 MEQ in PREMIX 1 EACH IV PRN (14:00)
[2019-01-12 14:12] LABS: INR 1.1; PT Patient Result 12.4 SECS; Partial Thromboplastin Time 29.7 SECS (0-40)
[2019-01-12] MEDS: HEPARIN/NACL 0.9% 2 UNITS/ML 500 ML IV SCH (14:32)
[2019-01-12] MEDS ORDERED: AMIODARONE INJ 150 MG in DEXTROSE 5% 100 ML IV ONE (17:50)
[2019-01-12] MEDS ORDERED: MIDAZOLAM 2 MG/2 ML VIAL IV ONE (18:07)
[2019-01-12] MEDS: PHENYLEPHRINE DRIP 40 MG/250 ML PREMIX IV PRN (18:10)
[2019-01-12] MEDS: fentaNYL INJ 1,250 MCG in SODIUM CHLORIDE 0.9% 225 ML IV PRN (18:17)
[2019-01-12] MEDS: DULoxetine 30 MG CAPSULE PO SCH (20:52)
[2019-01-12] MEDS: ASPIRIN EC 81 MG TABLET PO SCH (20:52)
[2019-01-12] MEDS: ATORVASTATIN 80 MG TABLET PO SCH (20:52)
[2019-01-13] MEDS: DOBUTamine 500 MG/250 ML PREMIX IV PRN ×3 (01:39→09:56)
[2019-01-13] MEDS: PHENYLEPHRINE DRIP 40 MG/250 ML PREMIX IV PRN ×3 (01:40→11:35)
[2019-01-13] MEDS: ALBUTEROL/IPRATROPIUM 3 ML NEB RESP TX SCH ×2 (02:30→07:53)
[2019-01-13 05:40] LABS: ABG Base Excess -3.9 MMOL/L (-2.5-2.5); ABG HCO3 21.2 MMOL/L (20-26); ABG Oxygen Saturation 96.2 % (95-100); ABG PCO2 36.2 MM HG (35-48); ABG PH 7.369 (7.35-7.45); ABG TCO2 19.1 MMOL/L (23-27)
[2019-01-13 05:42] LABS: Basophils % 0.1 % (0.0-0.8); Hematocrit 27.9 VOL% (42.0-52.0); Hemoglobin 9.4 GM/DL (14.0-18.0); Immature Granulocytes % 0.3 %; Immature Granulocytes Absolute 0.03 #; Lymphocytes # 0.3 10*3/uL (1.4-4.0); Lymphocytes % 3.3 % (21.2-54.2); Mean Corpuscular HGB Conc 33.7 GM/DL (32-36); Mean Corpuscular Volume 99.6 FL (87-102); Monocytes % 4.8 % (1.7-12.7); Neutrophils % 91.5 % (38.7-73.9); Platelet Count 105 T/CUMM (130-400); Red Cell Distribution Width 14.6 % (9.3-17.3); White Blood Count 10.2 T/CUMM (4-12)
[2019-01-13 05:58] LABS: Prealbumin 14.4 MG/DL (20-40)
[2019-01-13 06:01] LABS: Calcium 8.1 MG/DL (8.5-10.1); Osmolality,Calculated 288.1 MOS/KG (273-304)
[2019-01-13 06:15] LABS: Band Neutrophils 2 % (0-10); Hypochromasia Slight; Lymphocytes 5 % (20-55); Ovalocytes Slight; Platelet Estimate Decreased; Segmented Neutrophils 86 % (50-85); Total Cells Counted 100
[2019-01-13] MEDS: INSULIN LISPRO 100 UNIT/ML SUBCUT SCH ×2 (06:30→13:15)
[2019-01-13] MEDS ORDERED: FUROSEMIDE 40 MG/4 ML VIAL IV ONE (06:54)
[2019-01-13] MEDS ORDERED: DIGOXIN 0.5 MG/2 ML AMP IV ONE (07:09)
[2019-01-13] MEDS: methylPREDNISolone SOD SUC 40 MG/1 ML VIAL IV SCH (07:25)
[2019-01-13] MEDS: fentaNYL INJ 1,250 MCG in SODIUM CHLORIDE 0.9% 225 ML IV PRN (09:16)
[2019-01-13] MEDS: ENOXAPARIN 40 MG/0.4 ML SYRINGE SUBCUT SCH (09:56)
[2019-01-13] MEDS: AMIODARONE 200 MG TABLET PO SCH ×2 (09:57→10:11)
[2019-01-13] MEDS: CLOPIDOGREL 75 MG TABLET PO SCH ×2 (09:57→10:14)
[2019-01-13] MEDS: LANSOPRAZOLE ODT 30 MG TABLET PER TUBE SCH ×2 (09:59→10:15)
[2019-01-13] MEDS: PROPOFOL 1,000 MG/100 ML BOTTLE IV SCH (11:23)
[2019-01-13] MEDS: HEPARIN/NACL 0.9% 2 UNITS/ML 500 ML IV SCH (11:25)
[2019-01-13] MEDS: MORPHINE 4 MG/1 ML VIAL IV PRN ×5 (13:06→17:11)
== END 2019-01-13 17:40 | disposition expired | DRG 286 ==
LOC: N.ED 21:35 → N.EDINP 01-09 01:30 → N.TELES 01-09 03:08 → N.ICU 01-11 08:32
PROVIDERS: ADMIT Internal Medicine; ATTEND Internal Medicine